=== PATIENT | female | born 1945 | race Caucasian/White ===

== ENCOUNTER 2022-05-16 16:15 | Outpatient (RCR) | payer MEDICARE, BC, SELFPAY | END 2023-03-07 23:59 | disposition home or self-care (01) | PROVIDERS: PCP Family Medicine; Visit Provider Family Medicine | DX: M54.16 Radiculopathy, lumbar region (principal); Z51.89 Encounter for other specified aftercare | CPT/HCPCS: 97110; 97112; 97140; 97162 ==